=== PATIENT | female | born 1985 | race Caucasian/White ===

== ENCOUNTER 2016-11-12 18:32 | Emergency (ER) | payer SELFPAY ==
[2016-11-12 19:05] VITALS: BP 139/84
--- NOTE | 2016-11-12 19:25 | ER Document Report ---
ED Medical Screen (RME) - General Chief Complaint: Back Pain Stated Complaint: CHEST PAIN AND BACK PAIN Time Seen by Provider: 11/12/16 19:13 Notes: Patient presents with lower chest and upper abdominal pain. She has had this for several days. She states she is recently seen twice in the emergency department at another facility. She states that they told her they are not sure what is wrong but they did do multiple different tests that were all unremarkable. She states that they gave her an antibiotic but did not tell her where the infection was. She also states that she received Prilosec and Bentyl but neither 1 of these have helped with the pain. She has had a previous cholecystectomy. TRAVEL OUTSIDE OF THE [place] IN LAST 30 DAYS: No - Related Data Allergies/Adverse Reactions: No Known Allergies Allergy (Unverified 11/12/16 19:02) Past Medical History Renal/ Medical History: Denies: Hx Peritoneal Dialysis Physical Exam - Vital signs Vitals: Temp Pulse Resp BP Pulse Ox 98.1 F 66 18 139/84 H 98 11/12/16 19:02 11/12/16 19:02 11/12/16 19:02 11/12/16 19:02 11/12/16 19:02 Course - Vital Signs Vital signs: Temp Pulse Resp BP Pulse Ox 98.1 F 66 18 139/84 H 98 11/12/16 19:02 11/12/16 19:02 11/12/16 19:02 11/12/16 19:02 11/12/16 19:02
[2016-11-12 19:49] LABS: ABSOLUTE LYMPHOCYTES (AUTO) 1.2 10^3/uL (0.5-4.7); ABSOLUTE MONOCYTES (AUTO) 0.3 10^3/uL (0.1-1.4); ABSOLUTE NEUT (AUTO) 6.8 10^3/uL (1.7-8.2); BASOPHILS % (AUTO) 0.6 % (0-2); EOSINOPHILS % (AUTO) 0.4 % (0-6); HEMATOCRIT 45.9 % (36.0-47.0); HEMOGLOBIN 15.8 g/dL (12.0-15.5); HGB HCT DIFFERENCE 1.5; LYMPHOCYTES % (AUTO) 14.8 % (13-45); MEAN CORPUSCULAR HEMOGLOBIN 31.3 pg (27.0-33.4); MEAN CORPUSCULAR HGB CONC 34.4 g/dL (32.0-36.0); MEAN CORPUSCULAR VOLUME 91 fl (80-97); MONOCYTES % (AUTO) 3.4 % (3-13); RED BLOOD COUNT 5.04 10^6/uL (3.72-5.28); RED CELL DISTRIBUTION WIDTH 13.1 % (11.5-14.0); SEGMENTED NEUTROPHILS % (AUTO) 80.8 % (42-78); WHITE BLOOD COUNT 8.4 10^3/uL (4.0-10.5)
[2016-11-12 20:08] LABS: ALANINE AMINOTRANSFERASE 367 U/L (9-52); ALBUMIN 4.4 g/dL (3.5-5.0); ALKALINE PHOSPHATASE 154 U/L (38-126); ANION GAP 12 (5-19); ASPARTATE AMINO TRANSFERASE 101 U/L (14-36); BILIRUBIN,DIRECT 2.8 mg/dL (0.0-0.4); BILIRUBIN,TOTAL 3.4 mg/dL (0.2-1.3); BLOOD UREA NITROGEN 5 mg/dL (7-20); CALCIUM 9.2 mg/dL (8.4-10.2); CARBON DIOXIDE 21 mmol/L (22-30); CHLORIDE 105 mmol/L (98-107); CREATININE RESULT 0.74 mg/dL (0.52-1.25); GLUCOSE 148 mg/dL (75-110); LIPASE 65.9 U/L (23-300); POTASSIUM 4.1 mmol/L (3.6-5.0); SODIUM 138.3 mmol/L (137-145); TOTAL PROTEIN 7.5 g/dL (6.3-8.2)
--- NOTE | 2016-11-13 17:40 | EKG REPORT ---
SEVERITY:- ABNORMAL ECG - SINUS RHYTHM BORDERLINE RIGHT AXIS DEVIATION BORDERLINE Q WAVE IN ANTEROLATERAL LEADS INFERIOR Q WAVES, PROBABLY NORMAL VARIATION LATERAL Q WAVES, PROBABLY NORMAL VARIATION : Confirmed by: Cherelle Paiz MD 13-Nov-2016 17:38:21
== END 2016-11-12 21:45 | disposition left against medical advice (07) ==
LOC: ER 18:32
DX: Z53.9 Procedure and treatment not carried out, unspecified reason (principal); M54.9 Dorsalgia, unspecified; R07.9 Chest pain, unspecified; R10.10 Upper abdominal pain, unspecified
CPT/HCPCS: 36415; 80053; 83690; 85025; 93005; 93010; 99281